=== PATIENT | female | born 1960 | race Caucasian/White ===

== ENCOUNTER 2017-06-29 05:24 | Emergency (ER) | payer OTHER ==
[~2017-06-29] VITALS: Ht 160 cm; Wt 81.4 kg
[~2017-06-29 05:24] MED LIST: ADVAIR 250/501 DISK IH; ADVAIR 500/501 DISK IH; AZITHROMYCIN500 M1 PO; IBUPROFEN600 MG PO; INCRUSE ELLI62.5 MCG IH; LEVAQUIN500 MG PO; LORTAB 5-325 M1 EACH PO; LOSARTAN-HCTZ1 EAC2 PO; NICOTINE PATCH1 EAC2 TD; PRAVACHOL10 MG PO; PREDNISONE20 MG PO; VENTOLIN HFA18 GM IH; ZOFRAN ODT4 MG PO
[2017-06-29 05:29] VITALS: BP 151/88
[2017-06-29] MEDS ORDERED: TYLENOL WITH C1 EACH PO (07:52)
== END 2017-06-29 08:17 | disposition home or self-care (01) ==
LOC: EME 05:24
DX: S93.401A Sprain of unspecified ligament of right ankle, initial encounter (principal); W10.9XXA Fall (on) (from) unspecified stairs and steps, initial encounter; J44.9 Chronic obstructive pulmonary disease, unspecified; I10 Essential (primary) hypertension; Z87.891 Personal history of nicotine dependence
CPT/HCPCS: 73590; 73610; 99281; 99283

== ENCOUNTER 2018-06-21 12:26 | Inpatient (IN) | payer OTHER ==
[~2018-06-21] VITALS: Ht 160 cm; Wt 79.0 kg
[~2018-06-21 12:26] MED LIST changes: +TYLENOL WITH C1 EACH PO
[2018-06-21 13:35] LABS: HEMATOCRIT 37.7 % (36.0-46.0); HEMOGLOBIN 12.1 G/DL (11.9-15.5); MCH 27.2 PG (29.0-34.0); MCHC 32.1 G/DL (30.0-36.0); MCV 84.7 FL (83-99); PLATELET COUNT 390 K/uL (156-360); RBC DIS.WIDTH-CV 13.6 % (11.8-14.6); RBC DIS.WIDTH-SD 42.1 % (39-53); RED BLOOD COUNT 4.45 M/uL (3.80-5.20); WHITE BLOOD COUNT 15.6 K/uL (4.1-10.2)
[2018-06-21 13:44] LABS: CHLORIDE 104 mEq/L (99-109); POTASSIUM 3.9 mEq/L (3.7-5.4); SODIUM 140 mEq/L (136-147)
[2018-06-21 13:46] LABS: GLUCOSE 89 mg/dL (70-99)
[2018-06-21 13:50] LABS: CREATININE 0.7 mg/dL (0.6-1.3); GFR ESTIMATE (CALCULATED) > 59 mL/min/; UREA NITROGEN (BUN) 7 mg/dL (9-23)
[2018-06-21 13:57] LABS: TROP-I INTERPRETATION NEGATIVE; TROPONIN-I < 0.01 ng/mL (0.0-0.30)
[2018-06-21] MEDS ORDERED: WOMEN'S 50 PLU1 EACH PO (16:10)
[2018-06-21] MEDS ORDERED: LOPRESSOR25 MG PO (16:11)
[2018-06-21 20:34] LABS: ALBUMIN 3.8 g/dL (3.2-4.8)
[2018-06-21 20:37] LABS: TOTAL PROTEIN 7.3 g/dL (6.4-8.3)
[2018-06-21 20:39] LABS: TOTAL BILIRUBIN 0.3 mg/dL (0.0-1.0)
[2018-06-21 20:40] LABS: ALKALINE PHOSPHATASE 108 IU/L (3-129)
[2018-06-21 20:42] LABS: AST (GOT) 18 IU/L (2-34)
[2018-06-21 20:43] LABS: ALT (GPT) 12 IU/L (3-49); DIRECT BILIRUBIN 0.1 mg/dL (0.0-0.3)
[2018-06-21 20:44] LABS: LIPASE 14 U/L (1.0-51.0)
[2018-06-21 20:47] LABS: TROP-I INTERPRETATION NEGATIVE; TROPONIN-I < 0.01 ng/mL (0.0-0.30)
[2018-06-22 02:02] LABS: TROP-I INTERPRETATION NEGATIVE; TROPONIN-I < 0.01 ng/mL (0.0-0.30)
[2018-06-22 03:18] VITALS: BP 108/57
[2018-06-22 05:45] LABS: HEMATOCRIT 35.8 % (36.0-46.0); HEMOGLOBIN 11.4 G/DL (11.9-15.5); MCH 26.8 PG (29.0-34.0); MCHC 31.8 G/DL (30.0-36.0); MCV 84.2 FL (83-99); PLATELET COUNT 414 K/uL (156-360); RBC DIS.WIDTH-CV 13.8 % (11.8-14.6); RBC DIS.WIDTH-SD 42.8 % (39-53); RED BLOOD COUNT 4.25 M/uL (3.80-5.20); WHITE BLOOD COUNT 18.5 K/uL (4.1-10.2)
[2018-06-22 06:03] LABS: CHLORIDE 101 MEQ/L (99-109); CREATININE 0.6 MG/DL (0.6-1.3); GFR ESTIMATE (CALCULATED) > 59 mL/min/; HDL CHOLESTEROL 46 MG/DL (Desirable>=50); LDL CHOLESTEROL 125 mg/dL (Desirable<100); NON-HDL CHOLESTEROL 145 mg/dL (Desirable<160); POTASSIUM 4.5 MEQ/L (3.7-5.4); SODIUM 139 MEQ/L (136-147); TOTAL CHOLESTEROL 191 mg/dL (Desirable<200); TRIGLYCERIDES 100 MG/DL (Normal: <150); UREA NITROGEN (BUN) 13 mg/dL (9-23)
[2018-06-22 06:11] LABS: GLUCOSE 157 mg/dL (70-99)
[2018-06-22 07:42] LABS: THYROTROPIN (TSH) 1.5 MIU/L (0.4-5.5)
[2018-06-22 08:44] VITALS: BP 123/67
[2018-06-22 11:53] VITALS: BP 122/58
== END 2018-06-22 13:00 | disposition home or self-care (01) | DRG 305 ==
LOC: EME 12:26 → EDOF 16:59 → CANRESERV 17:12 → ENRESERV 17:12 → CANRESERV 17:18 → ENRESERV 17:18 → EDOF 22:46 → 4EAST 22:46
PROVIDERS: Emergency Medicine; Hospitalist
DX: I16.0 Hypertensive urgency (principal); I24.8 Other forms of acute ischemic heart disease; I10 Essential (primary) hypertension; J44.1 Chronic obstructive pulmonary disease with (acute) exacerbation; I65.23 Occlusion and stenosis of bilateral carotid arteries; R22.32 Localized swelling, mass and lump, left upper limb; R21 Rash and other nonspecific skin eruption; R91.1 Solitary pulmonary nodule; E78.5 Hyperlipidemia, unspecified; Z87.891 Personal history of nicotine dependence
CPT/HCPCS: 71046; 71275; 74175; 80048; 80061; 80076; 83690; 84443; 84484; 85027; 87040; 93005; 93306; 93880; 93971; 94640; 94799; 99281; 99285; J0360; J1644; J2270; J2405; J2920; J7512